=== PATIENT | female | born 1930 | race Caucasian/White ===

== ENCOUNTER 2017-05-26 11:21 | Inpatient (IN) ==
[2017-05-26] MEDS ORDERED: Albuterol 2.5 MG/3 ML NEBULIZER IH ONE (11:31)
[2017-05-26] MEDS ORDERED: Ipratropium/Albuterol Neb 3 ML IH ONE (11:31)
[2017-05-26] MEDS ORDERED: 0.9 % Sodium Chloride 1,000 ML IVC ONE ×2 (11:31→13:26)
[2017-05-26] MEDS ORDERED: methylPREDNISolone 125 MG/2 ML VIAL IVP ONE (11:31)
--- NOTE | 2017-05-26 11:34 | Emergency Department Note ---
Disposition Clinical Impression: Dehydration Pneumonia Qualifiers: Pneumonia type: due to unspecified organism Laterality: bilateral Lung location : unspecified part of lung Qualified Code(s): J18.9 - Pneumonia, unspecified organism Disposition: Admitted As Inpatient Condition: Good Time of Disposition: 12:59 URI/Sore Throat HPI - General Chief Complaint: ED Urogenital-Male Stated Complaint: Family thinks UTI vs dehydratrion Time Seen by Provider: 05/26/17 11:30 Source: patient, family Mode of arrival: EMS Limitations: physical limitation (Dementia), age Nursing Notes Reviewed: Yes Vital Signs Reviewed: Yes - History of Present Illness HPI Narrative: 87-year-old white female transported by EMS with cough, weakness, decreased by mouth intake. History obtained primarily from the family is that she has had a cough for about 3 days. She has been weak, and not eating as much as usual. No reported fever. No shortness of breath. No vomiting or diarrhea. No frequency or urgency. She has had previous history of UTI. Pt Subjective Complaint: cough Onset (ago): day(s) Duration: intermittent (3) Severity: moderate Improves with: nothing Worsens with: nothing If sputum, description: yellow Context: multiple patients with similar complaints Associated symptoms: Reports: other (Weakness and decreased by mouth intake) Treatments prior to arrival: none - Related Data Home Medications Medication Instructions Recorded Confirmed No Known Home Drugs 05/26/17 05/26/17 Allergies Allergy/AdvReac Type Severity Reaction Status Date / Time No Known Allergies Allergy Verified 05/26/17 11:32 All systems ED: reviewed and negative except as stated. Constitutional: Denies: fever, chills Eyes: Denies: eye discharge ENT ED: Denies: ear pain, throat pain Cardiovascular: Denies: chest pain Respiratory: Reports: cough, wheezes, sputum production. Denies: dyspnea Gastrointestinal: Reports: other (Decreased intake). Denies: abdominal pain, nausea, vomiting, diarrhea Genitourinary: Denies: urgency, dysuria, frequency Neurological: Reports: weakness URI PMH - Past Medical History Medical history: Reports: no medical history, dementia Psychiatric history: Reports: no psych history - Social History Smoking Status: Never smoker Alcohol use: Reports: none Drug use: Reports: unknown Physical Exam - General Limitations: age General appearance: alert, in no apparent distress - Head Head exam: atraumatic, normocephalic - Eye Eye exam: Present: PERRL, EOMI. Absent: scleral icterus, conjunctival injection - ENT ENT exam: normal oropharynx, mucous membranes moist, TM's normal bilaterally - Neck Neck exam: Present: normal inspection, full ROM, trachea midline. Absent: tenderness, lymphadenopathy - Respiratory Respiratory exam: Present: wheezes (Moderate diffuse bilateral expiratory), other (Decreased breath sounds in the bases with basilar rales). Absent: respiratory distress, accessory muscle use, prolonged expiratory phase - Cardiovascular Cardiovascular exam: Present: regular rate, normal rhythm, normal heart sounds - Abdominal Exam Abdominal exam: Present: soft, Non-Tender, normal bowel sounds. Absent: organomegaly, mass - Extremities Exam Extremities exam: Present: normal inspection, full ROM, normal capillary refill. Absent: pedal edema, calf tenderness - Back Exam Back exam: Present: normal inspection. Absent: CVA tenderness (R), CVA tenderness (L) - Neurological Exam Neurological exam: Present: alert, oriented X3. Absent: motor sensory deficit - Psychiatric Psychiatric exam: Present: normal affect, normal mood - Skin Skin exam: Present: warm, dry, intact, normal color. Absent: rash, cyanosis, diaphoresis Course Vital Signs Temperature 98.9 F 05/26/17 11:24 Pulse Rate 89 05/26/17 11:24 Respiratory Rate 18 05/26/17 11:24 Blood Pressure 90/67 05/26/17 11:24 O2 Sat by Pulse Oximetry 91 05/26/17 11:24 Temperature 98.5 F 05/26/17 14:11 Pulse Rate 99 05/26/17 14:11 Respiratory Rate 18 05/26/17 16:09 Blood Pressure 108/57 05/26/17 14:11 O2 Sat by Pulse Oximetry 92 05/26/17 16:09 Oxygen Delivery Oxygen Delivery Room Air Upper Respiratory Infection - MDM Narrative Medical decision making narrative: Differential includes but is not limited to pneumonia, bronchitis, influenza, urinary tract infection, dehydration, sepsis. She had bilateral patchy infiltrates consistent with pneumonia. She has a cough with bronchospasm. She is dehydrated. IV fluids been initiated. Blood cultures are being obtained prior to antibiotic therapy. She will be given Rocephin and azithromycin. She was given nebulizers and Solu-Medrol for her bronchospasm. Her lactic acid is not elevated. I discussed the case with the hospitalist, Dr. De La Fuente. He has accepted the patient for admission. - Lab Data Lab results reviewed: Yes I reviewed the patient's lab results. Result diagrams: 05/26/17 11:48 05/26/17 11:48 Lab Results 05/26/17 05/26/17 05/26/17 Range/Units 11:48 11:48 11:48 WBC 14.5 H (4.3-11.1) K/mcL RBC 4.30 (3.82-4.97) M/mcL Hgb 12.5 (11.5-15.4) g/dL Hct 38.0 (35.3-44.9) % MCV 88.4 (83.0-100.0) fL MCH 29.1 (28.0-33.3) pg MCHC 32.9 (31.6-35.5) g/dL RDW 12.7 (11.5-14.5) % Plt Count 264 (140-400) K/mcL MPV 10.4 (9.4-12.4) fL Immature Gran % Test Not Performed Seg Neutrophils % 78.0 % Band Neutrophils % 6.0 H (0-4) % Lymphocytes % 12.0 % Monocytes % 4.0 % Eosinophils % Test Not Performed Basophils % Test Not Performed Neutrophils # 12.2 H (1.6-8.9) K/mcL Lymphocytes # 1.7 (0.6-4.6) K/mcL Monocytes # 0.6 (0.0-1.3) K/mcL Eosinophils # Test Not Performed Basophils # Test Not Performed Hypersegmented Neuts Present A (Not Present) Reactive Lymphocytes Present A (Not Present) Toxic Vacuolation Present A (Not Present) Platelet Estimate Normal (Normal) Sodium 141 (136-145) mEq/L Potassium 3.9 (3.5-4.5) mEq/L Chloride 104 (98-109) mEq/L Carbon Dioxide 25 (19-29) mEq/L BUN 41 H (7-20) mg/dL Creatinine 1.70 H (0.57-1.11) mg/dL Est GFR ( Amer) 35 L (> 60) Est GFR (Non-Af Amer) 29 L (> 60) BUN/Creatinine Ratio 24 (6-26) Glucose 94 (70-99) mg/dL Calculated Osmolality 302 H (280-300) Lactic Acid 1.0 (0.5-2.2) mmol/L Calcium 9.5 (8.6-10.8) mg/dL Total Bilirubin 0.5 (0.2-1.2) mg/dL AST 35 H (5-34) Units/L ALT 14 (0-55) Units/L Alkaline Phosphatase 114 (38-126) Units/L Troponin I (0-0.03) ng/mL B-Natriuretic Peptide (0-100) pg/mL Serum Total Protein 7.1 (6.0-8.3) g/dL Albumin 2.4 L (3.5-5.0) g/dL Globulin 4.7 H (2.4-3.5) g/dL Albumin/Globulin Ratio 0.5 L (1.1-2.2) 05/26/17 05/26/17 Range/Units 11:48 11:48 WBC (4.3-11.1) K/mcL RBC (3.82-4.97) M/mcL Hgb (11.5-15.4) g/dL Hct (35.3-44.9) % MCV (83.0-100.0) fL MCH (28.0-33.3) pg MCHC (31.6-35.5) g/dL RDW (11.5-14.5) % Plt Count (140-400) K/mcL MPV (9.4-12.4) fL Immature Gran % Seg Neutrophils % % Band Neutrophils % (0-4) % Lymphocytes % % Monocytes % % Eosinophils % Basophils % Neutrophils # (1.6-8.9) K/mcL Lymphocytes # (0.6-4.6) K/mcL Monocytes # (0.0-1.3) K/mcL Eosinophils # Basophils # Hypersegmented Neuts (Not Present) Reactive Lymphocytes (Not Present) Toxic Vacuolation (Not Present) Platelet Estimate (Normal) Sodium (136-145) mEq/L Potassium (3.5-4.5) mEq/L Chloride (98-109) mEq/L Carbon Dioxide (19-29) mEq/L BUN (7-20) mg/dL Creatinine (0.57-1.11) mg/dL Est GFR ( Amer) (> 60) Est GFR (Non-Af Amer) (> 60) BUN/Creatinine Ratio (6-26) Glucose (70-99) mg/dL Calculated Osmolality (280-300) Lactic Acid (0.5-2.2) mmol/L Calcium (8.6-10.8) mg/dL Total Bilirubin (0.2-1.2) mg/dL AST (5-34) Units/L ALT (0-55) Units/L Alkaline Phosphatase (38-126) Units/L Troponin I 0.03 (0-0.03) ng/mL B-Natriuretic Peptide 80 (0-100) pg/mL Serum Total Protein (6.0-8.3) g/dL Albumin (3.5-5.0) g/dL Globulin (2.4-3.5) g/dL Albumin/Globulin Ratio (1.1-2.2) - Radiology Data Radiology results reviewed: Yes I reviewed the patient's radiology results. Impressions Chest X-Ray 05/26/17 11:31 IMPRESSION: Findings which may represent acute versus chronic bronchitis. 1. Mild bilateral nonspecific patchy opacities which may represent developing pneumonia. D/ / Jimenez Evans MD / Jimenez Evans MD Interpreting Provider: Jimenez Evans MD
[2017-05-26 12:00] LABS: Hemoglobin 12.5 g/dL (11.5-15.4); Mean Corpuscular HGB Conc 32.9 g/dL (31.6-35.5); Mean Corpuscular Hemoglobin 29.1 pg (28.0-33.3); Mean Corpuscular Volume 88.4 fL (83.0-100.0); Mean Platelet Volume 10.4 fL (9.4-12.4); Platelet Count 264 K/mcL (140-400); Red Cell Distribution Width 12.7 % (11.5-14.5)
[2017-05-26 12:18] LABS: Albumin 2.4 g/dL (3.5-5.0); Albumin/Globulin Ratio 0.5 (1.1-2.2); Bilirubin,Total 0.5 mg/dL (0.2-1.2); Calcium 9.5 mg/dL (8.6-10.8); Globulin 4.7 g/dL (2.4-3.5); Potassium 3.9 mEq/L (3.5-4.5); Total Protein 7.1 g/dL (6.0-8.3)
[2017-05-26 12:29] LABS: Lymphocytes # 1.7 K/mcL (0.6-4.6); Monocytes # 0.6 K/mcL (0.0-1.3); Neutrophils # 12.2 K/mcL (1.6-8.9)
[2017-05-26 12:30] LABS: Hypersegmented Neutrophils Present (Not Present); Platelet Estimate Normal (Normal); Reactive Lymphocytes Present (Not Present); Toxic Vacuolation Present (Not Present)
[2017-05-26] MEDS ORDERED: Azithromycin 500 MG in D5% in Water 250 ML IVPB ONE (12:35)
[2017-05-26] MEDS ORDERED: 0.9 % Sodium Chloride 1,000 ML IVC SCH (13:55)
[2017-05-26] MEDS ORDERED: Naloxone 0.4 MG/ML INJ IVP PRN (13:55)
[2017-05-26] MEDS ORDERED: Acetaminophen 325 MG TABLET PO PRN (13:55)
[2017-05-26] MEDS ORDERED: Ipratropium/Albuterol Neb 3 ML IH SCH (16:00)
--- NOTE | 2017-05-26 18:49 | Internal Med History&Physical ---
Date of Encounter: 05/26/17 Time of Encounter: 18:00 Assessment and Plan (1) Pneumonia Current visit: Yes Status: Acute She has been started empirically on Rocephin and Zithromax. Lactobacillus will be given. Further workup will be done as needed. Qualifiers: Pneumonia type: due to unspecified organism Laterality: bilateral Lung location: unspecified part of lung Qualified Code(s): J18.9 - Pneumonia, unspecified organism (2) Dementia Current visit: Yes Status: Acute MMSE will be done in a.m. Additional labs will be checked and further intervention done as needed. Qualifiers: Dementia type: unspecified type Dementia behavioral disturbance: without behavioral disturbance Qualified Code(s): F03.90 - Unspecified dementia without behavioral disturbance (3) Azotemia Current visit: Yes Status: Acute We will give IV fluids and recheck labs in a.m. Internal Medicine - H&P: HPI Chief complaint: Cough, weakness Admitted From: Home Plans for Post Hospital Care: Home History of present illness: Ms. Rose is a 87 year old female who came to emergency room with 3 day history of progressive weakness associated with nonproductive cough. She had 2 falls without injury since onset of symptoms. She denies vomiting diarrhea or significant pain. She was evaluated and felt to have pmeumonia on chest x-ray. She was admitted to [facility] floor for ongoing care needs. She is a limited historian with suspected underlying dementia. Her respiratory history is significant for being a lifelong nonsmoker and having no documented chronic lung disease. She does not use home oxygen. Past Med Surg Social Fam HX - Past Medical History Medical history: no medical history, dementia Psychiatric history: no psych history - Past Surgical History Surgical History: appendectomy - Social History Smoking Status: Never smoker Smokeless Tobacco Status: No Alcohol use: none Drug use: unknown Internal Medicine - H&P: Meds No Known Home Drugs 05/26/17 [History] 3 Allergy/AdvReac Type Severity Reaction Status Date / Time No Known Allergies Allergy Verified 05/26/17 11:32 All Systems PM: A 10-system review of systems was performed and is negative for pertinent findings except as documented above in the HPI. Review of systems: Gen.: She thinks her weight may have decreased approximately 10 pounds in the past year Cardiovascular: She denies VT hypertension heart failure angina DVT or pulmonary embolus Respiratory: As per history of present illness GI: She denies disorders of her liver gallbladder or exocrine pancreas : She is had urinary tract infections in the past. She denies other disorders of her kidneys or bladder Neurologic: She has had progressive memory impairment noted by family over the past few months. She denies large distribution strokes or seizures. Endocrine: She denies diabetes thyroid disease or hyperlipidemia Hematology/oncology: She denies blood disorders cancers or anemia Psychiatric: She denies anxiety depression or other mental health issues Musk skeletal: She has DJD but no known gout or other bone joint or muscle disorders. - Constitutional Vitals: Temp Pulse Resp BP Pulse Ox 98.5 F 99 18 108/57 92 05/26/17 14:11 05/26/17 14:11 05/26/17 16:09 05/26/17 14:11 05/26/17 16:09 Exam: Gen.: She is a well-developed well-nourished female resting comfortably in bed and appears in no acute distress HEENT: Head is atraumaticic and normocephalic. Eyes: EOMI. There is no scleral icterus. Mouth: Mucosa is moist. Neck: Supple and nontender. There is no thyromegaly or adenopathy noted. Heart: Regular without murmurs gallops or ectopics Lungs: No wheezes or crackles are heard. Abdomen: Soft and nontender. No masses or guarding noted. Extremities: There is no cyanosis edema, noted. Dorsalis pedis and posterior tibial pulses are trace palpable bilaterally. Her feet are warm to touch. Neurologic: Mental status: She is able to answer some questions but is overall a fair historian at best. She does not know her age, year of , place of , or do simple money calculation. Cranial nerves: Smile is symmetric. Forehead wrinkles bilaterally. Tongue protrudes midline. EOMI. Motor: There is no pronator drift. She has cogwheeling and rigidity on passive range of motion of her wrists and elbows. Cerebellar: Finger to nose shows dysmetria bilaterally. Skin: Warm and dry Internal Med - H&P Results - Labs CBC & Chem 7: 05/26/17 11:48 05/26/17 11:48
[2017-05-26] MEDS ORDERED: methylPREDNISolone 125 MG/2 ML VIAL IVP SCH (20:00)
[2017-05-26] MEDS: 0.45 % Sodium Chloride w/KCl 20 MEQ/1,000 ML MLS IVC SCH (20:20)
[2017-05-27 04:59] LABS: Hematocrit 34.5 % (35.3-44.9); Hemoglobin 11.2 g/dL (11.5-15.4); Lymphocytes # 0.8 K/mcL (0.6-4.6); Mean Corpuscular HGB Conc 32.5 g/dL (31.6-35.5); Mean Corpuscular Hemoglobin 28.6 pg (28.0-33.3); Mean Corpuscular Volume 88.2 fL (83.0-100.0); Mean Platelet Volume 10.6 fL (9.4-12.4); Platelet Count 256 K/mcL (140-400); Red Blood Count 3.91 M/mcL (3.82-4.97); Red Cell Distribution Width 12.8 % (11.5-14.5)
[2017-05-27 05:18] LABS: Alanine Aminotransferase 14 Units/L (0-55); Albumin/Globulin Ratio 0.5 (1.1-2.2); Alkaline Phosphatase 100 Units/L (38-126); Aspartate Amino Transferase 26 Units/L (5-34); BUN/Creatinine Ratio 36 (6-26); Bilirubin,Total 0.3 mg/dL (0.2-1.2); Blood Urea Nitrogen 34 mg/dL (7-20); Calcium 8.8 mg/dL (8.6-10.8); Carbon Dioxide 22 mEq/L (19-29); Chloride 108 mEq/L (98-109); Globulin 4.4 g/dL (2.4-3.5); Glucose 127 mg/dL (70-99); Osmolality,Calculated 297 (280-300); Potassium 4.3 mEq/L (3.5-4.5); Sodium 139 mEq/L (136-145); Total Protein 6.4 g/dL (6.0-8.3); eGFR For African Americans > 60 (> 60); eGFR For Non-African Americans 56 (> 60)
[2017-05-27] MEDS: 0.45 % Sodium Chloride w/KCl 20 MEQ/1,000 ML MLS IVC SCH (06:02)
[2017-05-27] MEDS: *HR* Enoxaparin 40 MG/0.4 ML SYRINGE SQ SCH (06:04)
[2017-05-27 06:05] LABS: Dohle Bodies Present (Not Present); Monocytes # 0.1 K/mcL (0.0-1.3); Neutrophils # 12.4 K/mcL (1.6-8.9)
[2017-05-27 06:06] LABS: Anisocytosis 1+ (Not Present); Platelet Estimate Normal (Normal)
[2017-05-27 06:07] LABS: Polychromasia 1+ (Not Present); Toxic Granulation Present (Not Present)
--- NOTE | 2017-05-27 10:51 | Internal Med Progress Note ---
Date of Encounter: 05/27/17 Time of Encounter: 10:15 - Assessment and plan (1) Pneumonia Current Visit: Yes Status: Acute Assessment and plan: May 27. Continue Rocephin, Zithromax, and lactobacillus. Anticipate discharge home tomorrow if stable. Qualifiers: Pneumonia type: due to unspecified organism Laterality: bilateral Lung location: unspecified part of lung Qualified Code(s): J18.9 - Pneumonia, unspecified organism (2) Dementia Current Visit: Yes Status: Acute Assessment and plan: May 27. MMSE score of 13/30. B12 level and T4 level unremarkable. Qualifiers: Dementia type: unspecified type Dementia behavioral disturbance: without behavioral disturbance Qualified Code(s): F03.90 - Unspecified dementia without behavioral disturbance (3) Azotemia Current Visit: Yes Status: Acute Assessment and plan: May 27. Significantly improved. Will decrease IV fluids and recheck labs in a.m. - Subjective Interval history: May 27. She has no new complaints and feels better. - Constitutional Vitals: Temp Pulse Resp BP Pulse Ox 98.4 F 71 24 134/61 92 05/27/17 10:20 05/27/17 10:20 05/27/17 10:20 05/27/17 10:20 05/27/17 10:20 Exam: She is resting comfortably in bed and appears in no acute distress. Her affect is bright and cheerful. I reviewed her medications and lab results. Internal Medicine: Result - Labs CBC & Chem 7: 05/27/17 04:30 05/27/17 04:30 Labs: Short CBC 05/27/17 Range/Units 04:30 WBC 13.3 H (4.3-11.1) K/mcL Hgb 11.2 L (11.5-15.4) g/dL Hct 34.5 L (35.3-44.9) % Plt Count 256 (140-400) K/mcL Neutrophils # 12.4 H (1.6-8.9) K/mcL BMP 05/27/17 04:30 Sodium 139 Potassium 4.3 Chloride 108 Carbon Dioxide 22 BUN 34 H Creatinine 0.94 Glucose 127 H Calcium 8.8 Liver Function 05/27/17 Range/Units 04:30 Total Bilirubin 0.3 (0.2-1.2) mg/dL AST 26 (5-34) Units/L ALT 14 (0-55) Units/L Alkaline Phosphatase 100 (38-126) Units/L Albumin 2.0 L (3.5-5.0) g/dL Consult Discharge Plan - Plan Referrals: NONE,PCP [Primary Care Provider] - 1 week Yelena Preston [Family Provider] - 1 week
[2017-05-27] MEDS ORDERED: 0.45 % Sodium Chloride w/KCl 20 MEQ/1,000 ML MLS IVC SCH (11:01)
[2017-05-27] MEDS ORDERED: Azithromycin 500 MG in D5% in Water 250 ML IVPB SCH (12:00)
[2017-05-27] MEDS ORDERED: ALPRAZolam 0.5 MG TABLET PO PRN (16:17)
[2017-05-27] MEDS: Lactobacillus 1 EACH CAP.SPRINK PO SCH (20:08)
[2017-05-27 23:31] LABS: Bilirubin,Urine Negative (Negative); Blood,Urine Trace-intact (Negative); Clarity,Urine Slightly Cloudy (Clear); Color,Urine Yellow (Yellow); Glucose,Urine (UA) Normal (Normal); Ketones,Urine Negative (Negative); Leukocyte Esterase,Urine Large (Negative); Nitrite,Urine Negative (Negative); PH,Urine 5.5 pH Units (5.0-8.0); Protein,Urine 30 mg/dL (Neg-Trace); Urobilinogen,Urine Normal (Normal)
[2017-05-27 23:40] LABS: Squamous Epithelial Cell,Urine Many per lpf (None-Few)
[2017-05-27 23:42] LABS: Uric Acid Crystals,Urine Present
[2017-05-28] MEDS: *HR* Enoxaparin 40 MG/0.4 ML SYRINGE SQ SCH (05:34)
[2017-05-28 06:20] LABS: Basophils # 0.1 K/mcL (0.0-0.2); Basophils % 0.3 %; Immature Granulocytes % 2.7 % (0-4); Lymphocytes # 2.3 K/mcL (0.6-4.6); Lymphocytes % 12.7 %; Mean Corpuscular HGB Conc 33.3 g/dL (31.6-35.5); Mean Corpuscular Hemoglobin 28.9 pg (28.0-33.3); Mean Corpuscular Volume 86.8 fL (83.0-100.0); Mean Platelet Volume 10.1 fL (9.4-12.4); Monocytes # 0.9 K/mcL (0.0-1.3); Monocytes % 5.3 %; Platelet Count 283 K/mcL (140-400); Red Cell Distribution Width 12.9 % (11.5-14.5)
[2017-05-28 06:35] LABS: BUN/Creatinine Ratio 44 (6-26); Blood Urea Nitrogen 34 mg/dL (7-20); Calcium 9.1 mg/dL (8.6-10.8); Carbon Dioxide 23 mEq/L (19-29); Chloride 110 mEq/L (98-109); Glucose 104 mg/dL (70-99); Osmolality,Calculated 302 (280-300); Potassium 4.1 mEq/L (3.5-4.5); Sodium 142 mEq/L (136-145); eGFR For African Americans > 60 (> 60); eGFR For Non-African Americans > 60 (> 60)
[2017-05-28 06:57] LABS: Platelet Estimate Normal (Normal)
[2017-05-28] MEDS: Lactobacillus 1 EACH CAP.SPRINK PO SCH (08:37)
[2017-05-28] MEDS ORDERED: Azithromycin 250 MG TABLET PO SCH (09:00)
[2017-05-28] MEDS ORDERED: Cefuroxime PO 250 MG TABLET PO SCH (09:00)
[2017-05-28 10:25] VITALS: BP 129/68
--- NOTE | 2017-05-28 11:06 | Discharge Summary ---
Date of Encounter: 05/28/17 Time of Encounter: 11:00 - Discharge Diagnosis (1) Pneumonia Priority: Primary Status: Acute Qualifiers: Pneumonia type: due to unspecified organism Laterality: bilateral Lung location: unspecified part of lung Qualified Code(s): J18.9 - Pneumonia, unspecified organism (2) Dementia Priority: Secondary Status: Chronic Qualifiers: Dementia type: unspecified type Dementia behavioral disturbance: without behavioral disturbance Qualified Code(s): F03.90 - Unspecified dementia without behavioral disturbance (3) Azotemia Priority: Secondary Status: Acute - Discharge Medications Prescriptions: Cefuroxime PO [Ceftin] 500 mg PO Q12HR #8 tablet Azithromycin [Zithromax] 250 mg PO DAILY #4 tablet Lactobacillus [Culturelle] 1 each PO BID #8 [email or web address] Home Medications: Azithromycin [Zithromax] 250 mg PO DAILY #4 tablet 05/28/17 [Rx] Cefuroxime PO [Ceftin] 500 mg PO Q12HR #8 tablet 05/28/17 [Rx] Lactobacillus [Culturelle] 1 each PO BID #8 cap.[email or web address] 05/28/17 [Rx] Allergies/Adverse Reactions: 3 Allergy/AdvReac Type Severity Reaction Status Date / Time No Known Allergies Allergy Verified 05/26/17 11:32 Date of admission: 05/26/17 19:20 Primary care physician: PCP NONE - Patient Status Disposition: Home, Self-Care Condition: Good Overall status at discharge: patient is progressing back to baseline - Discharge Instructions Follow Up With: NONE,PCP [Primary Care Provider] - 1 week Yelena Preston [Family Provider] - 1 week - Diet and Activity Activity: resume usual activities as tolerated Diet: advance to your usual diet Hospital course: Ms. Rose is a 87 year old female who came to emergency room with 3 day history of progressive weakness associated with nonproductive cough. She had 2 falls without injury since onset of symptoms. She denies vomiting diarrhea or significant pain. She was evaluated and felt to have pmeumonia on chest x-ray. She was admitted to [facility] floor for ongoing care needs. Initial orders were written by the emergency room physician. I saw her on May 26 and performed a history and physical. She was started empirically on IV Rocephin and Zithromax for pneumonia. Lactobacillus was also given. She had good clinical improvement with less dyspnea. She remained afebrile during her hospital stay. WBC bart to 17.7 on the day of discharge with 79% segs. She was asymptomatic however and will be discharged home to continue antibiotics and probiotics for 4 additional days after discharge. She was given IV fluids and creatinine decreased from 1.70 on admission to 0.77 the day of discharge with estimated GFR greater than 60. Dementia testing showed MMSE score of 13/30. B12 level was 1152 and TSH minimally suppressed at 0.241. On May 28 she was stable for discharge home. She will follow with her PCP within one week. - Time Spent with Patient Total time spent providing and/or coordinating discharge services: - Constitutional Vitals: Temp Pulse Resp BP Pulse Ox 98.4 F 86 18 129/68 94 05/28/17 10:22 05/28/17 10:22 05/28/17 10:22 05/28/17 10:22 05/28/17 10:22
== END 2017-05-28 11:55 | disposition home or self-care (01) | DRG 195 ==
LOC: INPPIK 11:21 → EMEROOPIK 11:21 → INPPIK 12:50
PROVIDERS: ADMIT Internal Medicine; ATTEND Internal Medicine

== ENCOUNTER 2018-05-05 09:53 | Inpatient (IN) ==
--- NOTE | 2018-05-05 10:10 | Emergency Department Note ---
Disposition Clinical Impression: History of fall, Weakness, Acute renal insufficiency Dementia Qualifiers: Dementia type: unspecified type Dementia behavioral disturbance: without behavioral disturbance Qualified Code(s): F03.90 - Unspecified dementia without behavioral disturbance Contusion of right back wall of thorax Qualifiers: Encounter type: initial encounter Qualified Code(s): S20.221A - Contusion of right back wall of thorax, initial encounter UTI (urinary tract infection) Qualifiers: Urinary tract infection type: acute cystitis Hematuria presence: without hematuria Qualified Code(s): N30.00 - Acute cystitis without hematuria Disposition: Admitted As Inpatient Condition: Good Referrals: Gilbert Camilo DIRECTOR OF [employer]IATION [Primary Care Provider] - () Forms: ED Satisfaction Letter Fall HPI - General Chief Complaint: ED General Medical Stated Complaint: FELL Time Seen by Provider: 05/05/18 10:00 Source: patient, family, EMS Mode of arrival: EMS Limitations: altered mental status (Dementia), age Nursing Notes Reviewed: Yes Vital Signs Reviewed: Yes - History of Present Illness HPI Narrative: Patient presents after history of a fall last night. Patient's family state they heard some noise and before they could get to her she stood from her bed and fell backwards impacting her upper back on the bed board. She sustained a contusion to the lower mid thoracic region and in the right subscapular region. She did not hit her head or sustain any other extremity injury. She was able to get up subsequently and has rested through the night. This morning she is ambulatory but with more of a shuffling gait. She has been brought in by EMS for evaluation. On presentation when asked if she has any pain or problems she states "none". She does not recall falling last night. She states that she has been able to get up and walk "a little" this morning. She denies any headache or scalp pain. She denies neck pain or midline back pain. She states she does not hurt anywhere. She denies visual changes, nausea or vomiting. She denies any chest pain, shortness of breath or cough. She denies abdominal pain, nausea, diarrhea. She denies urinary troubles. She denies any injury or pain to her upper or lower extremities. She denies fevers or chills. She believes that she is been eating and drinking okay. She is able to articulate that she lives with family. She is been transported in by EMS. They advised that she really did not want to come but her son has power of consumer attorney and the patient does have significant dementia. They established an IV in the right AC and documented a blood pressure of 136/66, heart rate of 88, respiratory rate of 15 and a saturation of 94% on room air. I advised that they are transport was uneventful. In speaking to the patient's family they state that she was diagnosed as a possible UTI this past Friday and started on Bactrim. She has some bladder prolapse and has recurrent UTIs. They state a urinalysis was not performed. Over the course of the week she has been more weak and wobbly. She has had 2-3 falls in the week without significant injury. In falling last night and hitting her back she has developed a contusion and abrasion in the mid low thoracic midline and a contusion in the right subscapular region for which they wanted her checked. They indicate that she is having little decrease in solid and liquid intake over the last week. They state that, as a baseline, she has about 3 minutes of short-term memory. Patient is not on anticoagulants. Pt Subjective Complaint: fall Onset (ago): day(s) (1) Fall From: out of bed Fall Witnessed: yes Place Fall Occurred: home Loss of Consciousness: none Prolonged Down Time?: no Symptoms Prior to Fall: none Context: tripped/slipped, history of frequent falls Location of injury: back Severity: none Associated symptoms (after fall): Reports: denies - Related Data Home Medications Medication Instructions Recorded Confirmed Sulfamethoxazole/Trimeth DS 1 each PO BID 05/05/18 05/05/18 [Bactrim DS] Allergies Allergy/AdvReac Type Severity Reaction Status Date / Time No Known Allergies Allergy Verified 05/26/17 11:32 All systems ED: reviewed and negative except as stated. Fall PMH - Past Medical History Medical history: Reports: dementia Surgical history: Reports: appendectomy Psychiatric history: Reports: no psych history - Social History Smoking Status: Never smoker Alcohol use: Reports: none Drug use: Reports: unknown Physical Exam - General Limitations: altered mental status (Dementia with severe short-term memory loss), age General appearance: alert, in no apparent distress - Head Head exam: atraumatic, normocephalic, normal inspection - Eye Eye exam: Present: normal appearance, PERRL, EOMI - ENT ENT exam: normal exam, normal oropharynx, mucous membranes moist - Neck Neck exam: Present: normal inspection, full ROM, trachea midline. Absent: tenderness - Chest Chest inspection: Present: symmetric chest wall rise, tenderness (Slight in the right subscapular region where she has a contusion. No tenderness over the thoracic spine where she also has a contusion over the lower mid thoracic spine. Patient has no crepitance or palpable step-off.) - Respiratory Respiratory exam: Present: normal lung sounds bilaterally. Absent: respiratory distress, wheezes, prolonged expiratory phase - Cardiovascular Cardiovascular exam: Present: regular rate, normal rhythm, normal heart sounds. Absent: tachycardia - Abdominal Exam Abdominal exam: Present: soft, Non-Tender, normal bowel sounds. Absent: tenderness, distention, guarding, rebound, rigidity - Extremities Exam Extremities exam: Present: normal inspection, full ROM, normal capillary refill. Absent: tenderness, pedal edema - Expanded Upper Extremity Exam Shoulder exam: Present: normal inspection, full ROM. Absent: tenderness, swelling, tenderness over AC joint Arm exam: Present: normal inspection, full ROM Elbow exam: Present: normal inspection, full ROM. Absent: tenderness, swelling Forearm/Wrist exam: Present: normal inspection, full ROM. 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 Absent: tenderness, swelling Vascular exam: Normal: capillary refill, radial pulse - Expanded Lower Extremity Exam Hip/Pelvis exam: Present: normal inspection, pelvis stable, other (Patient has some increased tone and stiffness to flexion of her hips and knees. He does not have pain with motion of the lower extremities.). Absent: tenderness, swelling Upper leg exam: Present: normal inspection Knee exam: Present: normal inspection, other. Absent: tenderness, swelling Lower leg exam: Present: normal inspection Ankle exam: Present: normal inspection. Absent: tenderness, swelling Foot/toe exam: Present: normal inspection. Absent: tenderness, swelling Neurovascular/Tendon exam: Present: normal capillary refill. Absent: motor deficit, sensory deficit, tendon deficit Gait: not tested/not observed - Back Exam Back exam: Present: full ROM, other (Curvilinear contusion across the lower thoracic spine that is nontender.). Absent: tenderness, vertebral tenderness - Neurological Exam Neurological exam: Present: alert, CN II-XII intact. Absent: oriented X3 - Psychiatric Psychiatric exam: Present: normal affect, normal mood. Absent: agitated, anxious - Skin Skin exam: Present: warm, dry, intact, normal color. Absent: diaphoresis, pall or Course Course Narrative: Care is discussed with the family immediately upon interviewing and examining the patient. A straight catheter urinalysis will be performed as well as a CBC and basic chemistries. Imaging has been ordered for the right ribs with PA chest. If this evaluation is unremarkable the family feels quite comfortable in taking her home to continue with her routine treatment. 1100: Given the patient's persistent UTI, weakness, recurrent falls and acute renal insufficiency, I believe a course of IV fluids and IV antibiotics would be most prudent. I discussed this with the patient and family. A page has been placed to Dr. De La Fuente for the patient's inpatient treatment. Vital Signs Temperature 98.6 F 05/05/18 09:57 Pulse Rate 91 05/05/18 09:57 Respiratory Rate 18 05/05/18 09:57 Blood Pressure 108/68 05/05/18 09:57 O2 Sat by Pulse Oximetry 94 05/05/18 09:57 Temperature 98.6 F 05/05/18 09:57 Pulse Rate 91 05/05/18 10:44 Respiratory Rate 16 05/05/18 10:44 Blood Pressure 133/89 05/05/18 10:44 O2 Sat by Pulse Oximetry 95 05/05/18 10:44 Oxygen Delivery Oxygen Delivery Room Air Fall - Differential Diagnosis Likely: syncope, traumatic injury - Medical Records Medical records reviewed: Yes I reviewed the patient's medical records. - Lab Data Lab results reviewed: Yes I reviewed the patient's lab results. Result diagrams: 05/05/18 10:25 05/05/18 10:25 Lab Results 05/05/18 05/05/18 05/05/18 Range/Units 10:20 10:25 10:25 WBC 10.4 (4.3-11.1) K/mcL RBC 4.85 (3.82-4.97) M/mcL Hgb 13.9 (11.5-15.4) g/dL Hct 42.5 (35.3-44.9) % MCV 87.6 (83.0-100.0) fL MCH 28.7 (28.0-33.3) pg MCHC 32.7 (31.6-35.5) g/dL RDW 13.3 (11.5-14.5) % Plt Count 198 (140-400) K/mcL MPV 9.6 (9.4-12.4) fL Immature Gran % 1.2 (0-4) % Seg Neutrophils % 83.8 % Lymphocytes % 8.1 % Monocytes % 6.4 % Eosinophils % 0.2 % Basophils % 0.3 % Neutrophils # 8.7 (1.6-8.9) K/mcL Lymphocytes # 0.8 (0.6-4.6) K/mcL Monocytes # 0.7 (0.0-1.3) K/mcL Eosinophils # 0.0 (0.0-0.6) K/mcL Basophils # 0.0 (0.0-0.2) K/mcL Sodium 131 L (136-145) mEq/L Potassium 4.7 (3.5-5.1) mEq/L Chloride 98 (98-107) mEq/L Carbon Dioxide 24 (23-29) mEq/L BUN 48 H (8-23) mg/dL Creatinine 1.75 H (0.60-1.20) mg/dL Est GFR ( Amer) 33 L (> 60) Est GFR (Non-Af Amer) 27 L (> 60) BUN/Creatinine Ratio 27 H (6-26) Glucose 110 H (70-105) mg/dL Calculated Osmolality 285 (280-300) Calcium 9.2 (8.6-10.3) mg/dL Urine Color Yellow (Yellow) Urine Clarity Cloudy A (Clear) Urine pH 6.0 (5.0-8.0) pH Units Ur Specific [place] 1.025 (1.010-1.025) Urine Protein 30 H (Neg-Trace) mg/dL Urine Glucose (UA) Normal (Normal) mg/dL Urine Ketones Negative (Negative) mg/dL Urine Blood Small H (Negative) Urine Nitrite Negative (Negative) Urine Bilirubin Negative (Negative) Urine Urobilinogen Normal (Normal) mg/dL Ur Leukocyte Esterase Large H (Negative) Urine Microscopic RBC 30-50 H (0-3) per hpf Urine Microscopic WBC TNTC H (0-3) per hpf Ur Squamous Epith Cells Few (None-Few) per lpf Urine Bacteria Moderate H (None-Few) per hpf Ur Culture Indicated? YES A (NO) - Radiology Data Radiology results reviewed: Yes I reviewed the patient's radiology results. 3 view x-ray is obtained of the right ribs with PA chest. This does not demonstrate evidence for acute rib fracture, pneumothorax or pulmonary effusion. There is no sign for pulmonary contusion. Patient does have a stable nodule in the right upper lobe. Patient does have osteopenia. No other acute abnormality is seen. This is on my interpretation. Impressions Ribs w/Chest X-Ray 05/05/18 10:04 IMPRESSION: No acute abnormality seen in the chest or right ribs D/ / John Paul Thompson MD / John Paul Thompson MD Interpreting Provider: John Paul Thompson MD
[2018-05-05 10:25] LABS: Bilirubin,Urine Negative (Negative); Blood,Urine Small (Negative); Clarity,Urine Cloudy (Clear); Color,Urine Yellow (Yellow); Glucose,Urine (UA) Normal (Normal); Ketones,Urine Negative (Negative); Leukocyte Esterase,Urine Large (Negative); Nitrite,Urine Negative (Negative); Protein,Urine 30 mg/dL (Neg-Trace); Specific Gravity,Urine 1.025 (1.010-1.025); Urobilinogen,Urine Normal (Normal)
[2018-05-05 10:31] LABS: Basophils % 0.3 %; Eosinophils % 0.2 %; Hematocrit 42.5 % (35.3-44.9); Hemoglobin 13.9 g/dL (11.5-15.4); Immature Granulocytes % 1.2 % (0-4); Lymphocytes # 0.8 K/mcL (0.6-4.6); Lymphocytes % 8.1 %; Mean Corpuscular HGB Conc 32.7 g/dL (31.6-35.5); Mean Corpuscular Hemoglobin 28.7 pg (28.0-33.3); Mean Corpuscular Volume 87.6 fL (83.0-100.0); Mean Platelet Volume 9.6 fL (9.4-12.4); Monocytes # 0.7 K/mcL (0.0-1.3); Monocytes % 6.4 %; Neutrophils # 8.7 K/mcL (1.6-8.9); Platelet Count 198 K/mcL (140-400); Red Blood Count 4.85 M/mcL (3.82-4.97); Red Cell Distribution Width 13.3 % (11.5-14.5); Segmented Neutrophils % 83.8 %
[2018-05-05 10:53] LABS: Calcium 9.2 mg/dL (8.6-10.3); Potassium 4.7 mEq/L (3.5-5.1)
[2018-05-05 10:54] LABS: RBC,Urine 30-50 per hpf (0-3); Squamous Epithelial Cell,Urine Few per lpf (None-Few); WBC,Urine TNTC per hpf (0-3)
[2018-05-05 10:55] LABS: Bacteria,Urine Moderate per hpf (None-Few)
[2018-05-05] MEDS ORDERED: cefTRIAXone 2,000 MG in 0.9 % Sodium Chloride Mini Bag 100 ML IVPB ONE (11:00)
[2018-05-05] MEDS ORDERED: 0.9 % Sodium Chloride 1,000 ML IVC ONE (11:00)
[2018-05-05] MEDS ORDERED: 0.9 % Sodium Chloride 1,000 ML IVC SCH (11:00)
[2018-05-05] MEDS ORDERED: Naloxone 0.4 MG/ML INJ IVP PRN (12:37)
--- NOTE | 2018-05-05 16:17 | Internal Med History&Physical ---
Date of Encounter: 05/05/18 Time of Encounter: 15:20 Assessment and Plan (1) Acute renal insufficiency Current visit: Yes Status: Acute Likely secondary to dehydration. IV fluids have been ordered. Labs will be checked in a.m. (2) UTI (urinary tract infection) Current visit: Yes Status: Acute She has been started empirically on Rocephin. Lactobacillus will be added. Qualifiers: Urinary tract infection type: acute cystitis Hematuria presence: without hematuria Qualified Code(s): N30.00 - Acute cystitis without hematuria (3) Dementia Current visit: Yes Status: Chronic MMSE May 2017 showed scored 13/30. B12 and TSH unremarkable. Qualifiers: Dementia type: unspecified type Dementia behavioral disturbance: without behavioral disturbance Qualified Code(s): F03.90 - Unspecified dementia without behavioral disturbance (4) Contusion of right back wall of thorax Current visit: Yes Status: Acute Will use analgesics as needed. Qualifiers: Encounter type: initial encounter Qualified Code(s): S20.221A - Contusion of right back wall of thorax, initial encounter (5) Weakness Current visit: Yes Status: Acute She will have PT and OT evaluations. Internal Medicine - H&P: HPI Chief complaint: Fall with weakness, UTI Admitted From: Emergency Dept Plans for Post Hospital Care: Home History of present illness: Ms. Rose is a 88 year old female who came to emergency room after family reports she had a fall last evening. They state she has been getting progressively weaker over the past few days with decreased oral intake. She was evaluated in emergency room and found to have acute renal insufficiency likely due to dehydration. She had evidence of UTI. She was admitted to [facility] floor for ongoing care needs. She has dementia and cannot give additional history. Her [id number] who supplies the history states she has had a urinary tract infection earlier this year. She does not have documented other kidney or bladder disorders. She was hospitalized approximately 11 months ago at [facility] with pneumonia and had acute renal insufficiency at that time which resolved by time of discharge. The patient denies pain or dyspnea at present time. Past Med Surg Social Fam HX - Past Medical History Medical history: dementia Psychiatric history: no psych history - Past Surgical History Surgical History: appendectomy - Social History Smoking Status: Never smoker Smokeless Tobacco Status: No Alcohol use: none Drug use: unknown Internal Medicine - H&P: Meds Sulfamethoxazole/Trimeth DS [Bactrim DS] 1 each PO BID 05/05/18 [History] Allergy/AdvReac Type Severity Reaction Status Date / Time No Known Allergies Allergy Verified 05/26/17 11:32 All Systems PM: A 10-system review of systems was performed and is negative for pertinent findings except as documented above in the HPI. Review of systems: Review of systems from her May 2017 [facility] hospitalization were reviewed and revised as below. Gen.: Her weight has increased from 59.194 kg on 05/28/2017 to 63.503 kg on admission today Cardiovascular: She denies CO hypertension heart failure angina DVT or pulmonary embolus Respiratory: She is a lifelong nonsmoker and has no documented chronic lung disease. GI: She denies disorders of her liver gallbladder or exocrine pancreas : As per history of present illness Neurologic: She has dementia but no known large distribution strokes or seizures. Endocrine: She denies diabetes thyroid disease or hyperlipidemia Hematology/oncology: She denies blood disorders cancers or anemia Psychiatric: She denies anxiety depression or other mental health issues Musk skeletal: She has DJD but no known gout or other bone joint or muscle disorders. - Constitutional Vitals: Temp Pulse Resp BP Pulse Ox 98.6 F 83 18 110/68 95 05/05/18 09:57 05/05/18 11:45 05/05/18 11:45 05/05/18 11:45 05/05/18 13:31 Exam: Gen.: She is a well-developed well-nourished female lying in bed who appears in no acute distress HEENT: Head is atraumatic and normocephalic. Eyes: EOMI. There is no scleral icterus. Mouth: Mucosa is moist. Neck: Supple and nontender. There is no thyromegaly or adenopathy noted. Heart: Regular without murmurs gallops or ectopics Lungs: No wheezes or crackles are heard. Abdomen: Soft and nontender. No masses or guarding are noted. Extremities: There is no cyanosis edema or clubbing noted. Dorsalis pedis and posttibial pulses are trace to 1+ palpable bilaterally. She has DJD changes or hands. Neurologic: Mental status: She is able to answer a few questions but is a poor historian. Cranial nerves: Smile is symmetric. Forehead wrinkles bilaterally. Tongue protrudes midline. EOMI. Motor: There is no pronator drift. Cerebellar: Finger to nose is intact bilaterally. Skin: Warm and dry Internal Med - H&P Results - Labs CBC & Chem 7: 05/05/18 10:25 05/05/18 10:25 Labs: Short CBC 05/05/18 Range/Units 10:25 WBC 10.4 (4.3-11.1) K/mcL Hgb 13.9 (11.5-15.4) g/dL Hct 42.5 (35.3-44.9) % Plt Count 198 (140-400) K/mcL Neutrophils # 8.7 (1.6-8.9) K/mcL BMP 05/05/18 10:25 Sodium 131 L Potassium 4.7 Chloride 98 Carbon Dioxide 24 BUN 48 H Creatinine 1.75 H Glucose 110 H Calcium 9.2 Urine 05/05/18 Range/Units 10:20 Urine Color Yellow (Yellow) Urine Clarity Cloudy A (Clear) Urine pH 6.0 (5.0-8.0) pH Units Ur Specific [place] 1.025 (1.010-1.025) Urine Protein 30 H (Neg-Trace) mg/dL Urine Glucose (UA) Normal (Normal) mg/dL - Impressions ITS Impressions Ribs w/Chest X-Ray 05/05/18 10:04 IMPRESSION: No acute abnormality seen in the chest or right ribs D/ / John Paul Thompson MD / John Paul Thompson MD Interpreting Provider: John Paul Thompson MD
[2018-05-05] MEDS: 0.9 % Sodium Chloride 1,000 ML IVC SCH (18:47)
[2018-05-05] MEDS: Lactobacillus 1 EACH CAP.SPRINK PO SCH (20:47)
[2018-05-06] MEDS: 0.9 % Sodium Chloride 1,000 ML IVC SCH ×5 (02:32→23:38)
[2018-05-06 05:22] LABS: Basophils % 0.2 %; Eosinophils % 0.3 %; Hematocrit 39.1 % (35.3-44.9); Hemoglobin 12.6 g/dL (11.5-15.4); Immature Granulocytes % 1.1 % (0-4); Lymphocytes % 11.9 %; Mean Corpuscular HGB Conc 32.2 g/dL (31.6-35.5); Mean Corpuscular Hemoglobin 28.5 pg (28.0-33.3); Mean Corpuscular Volume 88.5 fL (83.0-100.0); Monocytes # 0.6 K/mcL (0.0-1.3); Monocytes % 6.4 %; Platelet Count 169 K/mcL (140-400); Red Blood Count 4.42 M/mcL (3.82-4.97); Red Cell Distribution Width 13.4 % (11.5-14.5); Segmented Neutrophils % 80.1 %
[2018-05-06 06:27] LABS: BUN/Creatinine Ratio 28 (6-26); Blood Urea Nitrogen 27 mg/dL (8-23); Calcium 8.4 mg/dL (8.6-10.3); Carbon Dioxide 20 mEq/L (23-29); Chloride 105 mEq/L (98-107); Glucose 83 mg/dL (70-105); Osmolality,Calculated 284 (280-300); Sodium 135 mEq/L (136-145); eGFR For Non-African Americans 54 (> 60)
[2018-05-06] MEDS: Lactobacillus 1 EACH CAP.SPRINK PO SCH ×2 (07:49→22:07)
[2018-05-06] MEDS: cefTRIAXone 2,000 MG in 0.9 % Sodium Chloride Mini Bag 100 ML IVPB SCH (07:50)
--- NOTE | 2018-05-06 11:23 | Internal Med Progress Note ---
Date of Encounter: 05/06/18 Time of Encounter: 11:15 - Assessment and plan (1) Acute renal insufficiency Current Visit: Yes Status: Acute Assessment and plan: May 06. Significantly improved with BUN 27 and creatinine 0.97. Continue IV fluids and recheck labs in a.m. (2) UTI (urinary tract infection) Current Visit: Yes Status: Acute Assessment and plan: May 06. Continue empiric Rocephin. Urine culture report pending. Qualifiers: Urinary tract infection type: acute cystitis Hematuria presence: without hematuria Qualified Code(s): N30.00 - Acute cystitis without hematuria (3) Dementia Current Visit: Yes Status: Chronic Assessment and plan: May 06. MMSE May 2017 showed score 13/30. B12 and TSH unremarkable. Observe Qualifiers: Dementia type: unspecified type Dementia behavioral disturbance: without behavioral disturbance Qualified Code(s): F03.90 - Unspecified dementia without behavioral disturbance (4) Contusion of right back wall of thorax Current Visit: Yes Status: Acute Assessment and plan: May 06. Continue analgesics as needed. Qualifiers: Encounter type: initial encounter Qualified Code(s): S20.221A - Contusion of right back wall of thorax, initial encounter (5) Weakness Current Visit: Yes Status: Acute Assessment and plan: May 06. Continue PT and OT intervention. - Subjective Interval history: May 06. No new problems have arisen. Family reports she is more confused today and did not sleep well last night. They report she is slightly constipated. - Constitutional Vitals: Temp Pulse Resp BP Pulse Ox 98.4 F 63 19 103/68 97 05/06/18 10:00 05/06/18 10:00 05/06/18 10:00 05/06/18 10:05/06/18 10:00 Exam: She is sitting in a chair at bedside resting comfortably and appears in no acute distress. Her affect is bright and cheerful. I reviewed her medications and lab results. Internal Medicine: Result - Labs CBC & Chem 7: 05/06/18 04:23 05/06/18 04:23 Labs: Short CBC 05/06/18 Range/Units 04:23 WBC 8.7 (4.3-11.1) K/mcL Hgb 12.6 (11.5-15.4) g/dL Hct 39.1 (35.3-44.9) % Plt Count 169 (140-400) K/mcL Neutrophils # 7.0 (1.6-8.9) K/mcL BMP 05/06/18 04:23 Sodium 135 L Potassium 4.0 Chloride 105 Carbon Dioxide 20 L BUN 27 H Creatinine 0.97 Glucose 83 Calcium 8.4 L Consult Discharge Plan - Plan Referrals: Gilbert Camilo, [employer] [Primary Care Provider] - 1 week
[2018-05-06] MEDS ORDERED: *HR* LORazepam 2 MG/ML VIAL IVP ONE (13:47)
[2018-05-06] MEDS: traZODone 50 MG TABLET PO SCH (22:07)
[2018-05-06] MEDS: ALPRAZolam 0.5 MG TABLET PO PRN (22:07)
[2018-05-07 06:42] LABS: Alanine Aminotransferase 11 Units/L (7-52); Alkaline Phosphatase 72 Units/L (34-104); Aspartate Amino Transferase 20 Units/L (13-39); BUN/Creatinine Ratio 19 (6-26); Bilirubin,Total 0.3 mg/dL (0.3-1.0); Blood Urea Nitrogen 12 mg/dL (8-23); Calcium 8.4 mg/dL (8.6-10.3); Carbon Dioxide 19 mEq/L (23-29); Chloride 108 mEq/L (98-107); Globulin 3.1 g/dL (2.4-3.5); Glucose 78 mg/dL (70-105); Osmolality,Calculated 281 (280-300); Potassium 3.6 mEq/L (3.5-5.1); Sodium 136 mEq/L (136-145); Total Protein 6.1 g/dL (6.4-8.9); eGFR For Non-African Americans > 60 (> 60)
[2018-05-07] MEDS: Lactobacillus 1 EACH CAP.SPRINK PO SCH ×2 (09:22→21:33)
[2018-05-07] MEDS: cefTRIAXone 2,000 MG in 0.9 % Sodium Chloride Mini Bag 100 ML IVPB SCH (09:23)
--- NOTE | 2018-05-07 10:05 | Internal Med Progress Note ---
Date of Encounter: 05/07/18 Time of Encounter: 09:48 - Assessment and plan (1) Acute renal insufficiency Current Visit: Yes Status: Acute Assessment and plan: May 06. Significantly improved with BUN 27 and creatinine 0.97. Continue IV fluids and recheck labs in a.m. May 07. Resolved. IV fluids will be discontinued. (2) UTI (urinary tract infection) Current Visit: Yes Status: Acute Assessment and plan: May 06. Continue empiric Rocephin. Urine culture report pending. May 07. Enterococcus faecalis on culture report noted. Change from Rocephin to Augmentin. Qualifiers: Urinary tract infection type: acute cystitis Hematuria presence: without hematuria Qualified Code(s): N30.00 - Acute cystitis without hematuria (3) Dementia Current Visit: Yes Status: Chronic Assessment and plan: May 06. MMSE May 2017 showed score 13/30. B12 and TSH unremarkable. Observe Qualifiers: Dementia type: unspecified type Dementia behavioral disturbance: without behavioral disturbance Qualified Code(s): F03.90 - Unspecified dementia without behavioral disturbance (4) Contusion of right back wall of thorax Current Visit: Yes Status: Acute Assessment and plan: May 06. Continue analgesics as needed. Qualifiers: Encounter type: initial encounter Qualified Code(s): S20.221A - Contusion o f right back wall of thorax, initial encounter (5) Weakness Current Visit: Yes Status: Acute Assessment and plan: May 06. Continue PT and OT intervention. - Subjective Interval history: May 06. No new problems have arisen. Family reports she is more confused today and did not sleep well last night. They report she is slightly constipated. May 07. No new problems have arisen. - Constitutional Vitals: Temp Pulse Resp BP Pulse Ox 98.5 F 100 18 129/63 99 05/07/18 05:40 05/07/18 05:40 05/07/18 05:40 05/07/18 05:40 05/07/18 05:40 Exam: She is resting comfortably in bed and appears in no acute distress. She denies pain or dyspnea. Her affect is overall cheerful. Heart is regular with rate approximately 90/m. Extremities show no edema. I reviewed her medications and lab results including urine culture. Internal Medicine: Result - Labs CBC & Chem 7: 05/06/18 04:23 05/07/18 05:42 Labs: [facility] 05/07/18 05:42 Sodium 136 Potassium 3.6 Chloride 108 H Carbon Dioxide 19 L BUN 12 Creatinine 0.64 Glucose 78 Calcium 8.4 L Liver Function 05/07/18 Range/Units 05:42 Total Bilirubin 0.3 (0.3-1.0) mg/dL AST 20 (13-39) Units/L ALT 11 (7-52) Units/L Alkaline Phosphatase 72 (34-104) Units/L Albumin 3.0 L (3.5-5.7) g/dL Consult Discharge Plan - Plan Referrals: Gilbert Camilo, PHYSICAL THERAPY TECHNICIAN [Primary Care Provider] - 1 week
[2018-05-07] MEDS ORDERED: MOM Conc 10 ML UD.LIQ PO SCH (10:15)
[2018-05-07] MEDS: ALPRAZolam 0.5 MG TABLET PO PRN (18:10)
[2018-05-07] MEDS: traZODone 50 MG TABLET PO SCH (21:33)
[2018-05-08] MEDS: Lactobacillus 1 EACH CAP.SPRINK PO SCH (08:57)
--- NOTE | 2018-05-08 09:14 | Discharge Summary ---
Date of Encounter: 05/08/18 Time of Encounter: 09:05 - Discharge Diagnosis (1) Acute renal insufficiency Priority: Primary Status: Resolved (2) UTI (urinary tract infection) Priority: Secondary Status: Acute Qualifiers: Urinary tract infection type: acute cystitis Hematuria presence: without hematuria Qualified Code(s): N30.00 - Acute cystitis without hematuria (3) Dementia Priority: Secondary Status: Chronic Qualifiers: Dementia type: unspecified type Dementia behavioral disturbance: without behavioral disturbance Qualified Code(s): F03.90 - Unspecified dementia without behavioral disturbance (4) Contusion of right back wall of thorax Priority: Secondary Status: Acute Qualifiers: Encounter type: initial encounter Qualified Code(s): S20.221A - Contusion of right back wall of thorax, initial encounter (5) Weakness Priority: Secondary Status: Acute Hospital course: Ms. Rose is a 88 year old female who came to emergency room after family reports she had a fall last evening. They state she has been getting progressively weaker over the past few days with decreased oral intake. She was evaluated in emergency room and found to have acute renal insufficiency likely due to dehydration. She had evidence of UTI. She was admitted to [facility] floor for ongoing care needs. Initial orders were written by the emergency room physician. I saw her on May 05 and performed the history and physical. She was given IV fluids. Azotemia resolved with BUN and creatinine decreasing to 12 and 0.64 respectively by May 07 with estimated GFR greater than 60. Her oral intake was adequate. She at evaluation and ongoing intervention by PT and OT. It was felt she might benefit from ongoing therapy in swing bed. Urine culture returned showing Enterococcus faecalis. She was initially given Rocephin but was changed to Augmentin and will continue this for 2 additional days in swing bed. - Time Spent with Patient Total time spent providing and/or coordinating discharge services: - Discharge Medications Home Medications: ALPRAZolam [Xanax 0.5 MG Tablet] 0.5 mg PO Q6HR PRN tablet 05/08/18 [Rx] Acetaminophen [Tylenol] 500 mg PO Q6HR PRN tablet 05/08/18 [Rx] Amoxicillin/Clavulanate [Augmentin] 875 mg PO BIDWM 2 Days tablet 05/08/18 [Rx] Docusate [Colace] 100 mg PO BID capsule 05/08/18 [Rx] Lactobacillus [Culturelle] 1 each PO BID 2 Days cap.sprink 05/08/18 [Rx] MOM Conc [MILK OF MAGNESIA conc] 10 ml PO Q48H ud.liq 05/08/18 [Rx] traZODone [TraZODone] 50 mg PO HS tablet 05/08/18 [Rx] Allergies/Adverse Reactions: Allergy/AdvReac Type Severity Reaction Status Date / Time No Known Allergies Allergy Verified 05/26/17 11:32 Date of admission: 05/05/18 15:56 Primary care physician: Gilbert Camilo CNP Consults: 05/05/18 12:37 Consult to Physical Therapy [CONS] Routine Comment: Evaluate, develop and implement POC Reason for Consult: By way need for wheelchair and other appliances to assist with ambulation. Does patient have active BEDREST order?: No Is patient medically & hemodynamically stable?: Yes Patient assessed for mobility or mobilized this visit?: Yes 05/05/18 15:27 Consult to Accountant Manager [CONS] Routine Reason for SW Consult: Family states there will be needs at home for discharge planning 05/05/18 15:46 Consult to Occupational Therapy [CONS] Routine Comment: Evaluate, develop and implement POC Reason for Consult: Fall, weakness Does patient have active BEDREST order?: No Is patient medically & hemodynamically stable?: Yes Patient assessed for mobility or mobilized this visit?: Yes Consult to Physical Therapy [CONS] Routine Comment: Evaluate, develop and implement POC Reason for Consult: Fall, weakness Does patient have active BEDREST order?: No Is patient medically & hemodynamically stable?: Yes Patient assessed for mobility or mobilized this visit?: Yes - Constitutional Vitals: Temp Pulse Resp BP Pulse Ox 97.5 F L 94 18 123/77 92 05/08/18 06:41 05/08/18 06:41 05/08/18 06:41 05/08/18 06:41 05/08/18 06:41 - Patient Status Disposition: Transfer Hospital Swing Bed Condition: Good - Discharge Instructions - Diet and Activity Activity: as per physical therapy Diet: regular diet
[2018-05-08] MEDS ORDERED: ALPRAZolam 0.5 MG TABLET PO SCH (10:30)
[2018-05-08 10:36] VITALS: BP 116/74
== END 2018-05-08 13:48 | disposition other institution (70) | DRG 690 ==
LOC: INPPIK 09:53 → EMEROOPIK 09:53 → INPPIK 12:15
PROVIDERS: ADMIT Internal Medicine; ATTEND Internal Medicine

== ENCOUNTER 2018-05-08 11:31 | Inpatient (IN) ==
[2018-05-08] MEDS ORDERED: ALPRAZolam 0.5 MG TABLET PO PRN (13:59)
[2018-05-08] MEDS: MOM Conc 10 ML UD.LIQ PO SCH (17:05)
[2018-05-08] MEDS: traZODone 50 MG TABLET PO SCH (22:14)
[2018-05-08] MEDS: Lactobacillus 1 EACH CAP.SPRINK PO SCH (22:14)
[2018-05-09 05:17] LABS: Basophils % 0.4 %; Eosinophils # 0.2 K/mcL (0.0-0.6); Eosinophils % 3.1 %; Hematocrit 41.2 % (35.3-44.9); Hemoglobin 13.3 g/dL (11.5-15.4); Immature Granulocytes % 0.9 % (0-4); Lymphocytes # 2.8 K/mcL (0.6-4.6); Lymphocytes % 35.9 %; Mean Corpuscular HGB Conc 32.3 g/dL (31.6-35.5); Mean Corpuscular Hemoglobin 28.5 pg (28.0-33.3); Mean Corpuscular Volume 88.2 fL (83.0-100.0); Monocytes # 0.6 K/mcL (0.0-1.3); Monocytes % 7.5 %; Platelet Count 188 K/mcL (140-400); Red Blood Count 4.67 M/mcL (3.82-4.97); Red Cell Distribution Width 13.5 % (11.5-14.5); Segmented Neutrophils % 52.2 %
[2018-05-09 06:00] LABS: Platelet Estimate Normal (Normal)
[2018-05-09 06:44] LABS: BUN/Creatinine Ratio 24 (6-26); Blood Urea Nitrogen 18 mg/dL (8-23); Calcium 8.8 mg/dL (8.6-10.3); Carbon Dioxide 23 mEq/L (23-29); Chloride 103 mEq/L (98-107); Glucose 81 mg/dL (70-105); Osmolality,Calculated 287 (280-300); Potassium 3.9 mEq/L (3.5-5.1); Sodium 138 mEq/L (136-145); eGFR For Non-African Americans > 60 (> 60)
[2018-05-09 06:48] LABS: INR 1.1; Prothrombin Time 11.9 Seconds (9.4-12.1)
[2018-05-09 06:50] LABS: Activated Partial Thrombo Time 32.2 Seconds (26.0-36.0)
[2018-05-09] MEDS: Lactobacillus 1 EACH CAP.SPRINK PO SCH ×2 (13:58→21:39)
[2018-05-09] MEDS: traZODone 50 MG TABLET PO SCH (21:39)
[2018-05-10] MEDS: Lactobacillus 1 EACH CAP.SPRINK PO SCH ×2 (09:13→20:48)
--- NOTE | 2018-05-10 11:01 | Internal Med Progress Note ---
Date of Encounter: 05/10/18 Time of Encounter: 10:55 - Assessment and plan (1) UTI (urinary tract infection) Current Visit: No Status: Acute Assessment and plan: May 10. She will complete her course of Augmentin and lactobacillus today. Qualifiers: Urinary tract infection type: acute cystitis Hematuria presence: without hematuria Qualified Code(s): N30.00 - Acute cystitis without hematuria (2) Weakness Current Visit: No Status: Acute Assessment and plan: May 10. Continue PT and OT intervention. (3) Dementia Current Visit: No Status: Chronic Assessment and plan: May 10. Continue Xanax as needed for behaviors. Qualifiers: Dementia type: unspecified type Dementia behavioral disturbance: without behavioral disturbance Qualified Code(s): F03.90 - Unspecified dementia without behavioral disturbance - Subjective Interval history: She was hospitalized in acute-care May 05-May 08 after experiencing a fall at home. She had acute renal insufficiency likely due to dehydration which resolved with IV fluids. She was treated for UTI. PT and OT evaluations and ongoing interventions were done. It was felt she would benefit from ongoing therapy in swing bed. No new problems have arisen. - Constitutional Vitals: Temp Pulse Resp BP Pulse Ox 97.8 F 83 16 103/63 96 05/09/18 18:38 05/09/18 18:38 05/09/18 18:38 05/09/18 18:38 05/09/18 21:40 Exam: She is resting comfortably in bed and appears in no acute distress. She opened her eyes toward the end of the exam but did not speak. Heart was regular with out murmurs gallops or ectopics. Lungs were clear anteriorly. Extremities show no edema. I reviewed her medications and lab results. Internal Medicine: Result - Labs CBC & Chem 7: 05/09/18 04:15 05/09/18 04:15 - ABG Interpretation ABG results: PT/INR, D-dimer PT 11.9 Seconds (9.4-12.1) 05/09/18 04:15 Consult Discharge Plan - Plan Referrals: NONE,PCP [Primary Care Provider] - 1 week
[2018-05-10] MEDS: MOM Conc 10 ML UD.LIQ PO SCH (16:10)
[2018-05-10] MEDS: traZODone 50 MG TABLET PO SCH (20:48)
[2018-05-11] MEDS: Lactobacillus 1 EACH CAP.SPRINK PO SCH ×2 (09:43→20:52)
[2018-05-11] MEDS: traZODone 50 MG TABLET PO SCH (20:51)
[2018-05-12 06:51] VITALS: BP 126/71
[2018-05-12] MEDS: Lactobacillus 1 EACH CAP.SPRINK PO SCH (08:57)
--- NOTE | 2018-05-12 15:54 | Discharge Summary ---
Date of Encounter: 05/12/18 Time of Encounter: 15:46 - Discharge Diagnosis (1) UTI (urinary tract infection) Priority: Primary Status: Resolved Qualifiers: Urinary tract infection type: acute cystitis Hematuria presence: without hematuria Qualified Code(s): N30.00 - Acute cystitis without hematuria (2) Weakness Priority: Secondary Status: Chronic (3) Dementia Priority: Secondary Status: Chronic Qualifiers: Dementia type: unspecified type Dementia behavioral disturbance: without behavioral disturbance Qualified Code(s): F03.90 - Unspecified dementia without behavioral disturbance Hospital course: Ms. Rose is a 88 year old female who was hospitalized in acute-care May 05-May 08 after experiencing a fall at home. She had acute renal insufficiency likely due to dehydration which resolved with IV fluids. She was treated for UTI. PT and OT evaluations and ongoing interventions were done. It was felt she would benefit from ongoing therapy in swing bed. She completed 2 additional days of antibiotic in swing bed. There was no evidence of ongoing UTI. She had ongoing physical therapy and occupational therapy intervention. She made slight progress. It was felt she would benefit from ongoing care needs in a SNF. Arrangements were complete for her to be discharged to [facility] the afternoon of May 12. She will follow with me there. She required intermittent Xanax for behaviors from dementia. - Time Spent with Patient Total time spent providing and/or coordinating discharge services: - Discharge Medications Prescriptions: ALPRAZolam [Xanax 0.5 MG Tablet] 0.5 mg PO Q6HR PRN 14 Days #56 tablet PRN Reason: Anxiety Home Medications: Acetaminophen [Tylenol] 500 mg PO Q6HR PRN tablet 05/08/18 [Rx] Docusate [Colace] 100 mg PO BID capsule 05/08/18 [Rx] MOM Conc [MILK OF MAGNESIA conc] 10 ml PO Q48H ud.liq 05/08/18 [Rx] traZODone [TraZODone] 50 mg PO HS tablet 05/08/18 [Rx] ALPRAZolam [Xanax 0.5 MG Tablet] 0.5 mg PO Q6HR PRN 14 Days #56 tablet 05/12/18 [Rx] Allergies/Adverse Reactions: Allergy/AdvReac Type Severity Reaction Status Date / Time No Known Allergies Allergy Verified 05/26/17 11:32 Date of admission: 05/08/18 13:53 Primary care physician: PCP NONE Consults: 05/08/18 13:51 Consult to Occupational Therapy [CONS] Routine Comment: Evaluate, Develop and Implement Plan of Care Reason for Consult: Evaluate, Develop and Implement Plan of Care Does patient have active BEDREST order?: No Is patient medically & hemodynamically stable?: Yes Patient assessed for mobility or mobilized this visit?: No Consult to Physical Therapy [CONS] Routine Comment: Evaluate, Develop and Implement Plan of Care Reason for Consult: Evaluate, Develop and Implement Plan of Care Does patient have active BEDREST order?: No Is patient medically & hemodynamically stable?: Yes Patient assessed for mobility or mobilized this visit?: No Consult to Pre School Teacher [CONS] Routine Reason for SW Consult: Discharge Planning - Constitutional Vitals: Temp Pulse Resp BP Pulse Ox 98.6 F 83 16 126/71 96 05/12/18 06:00 05/12/18 06:00 05/12/18 06:00 05/12/18 06:00 05/12/18 06:00 - Patient Status Disposition: Transfer SNF - Discharge Instructions - Diet and Activity Activity: as per physical therapy Diet: regular diet
--- NOTE | 2018-05-12 15:58 | Physician Discharge Referral ---
ExtendedCare Referral Info Transfer To: [facility] Provider in Charge: Sudhakar Provider in Charge after Transfer: PCP (Sudhakar) - Diagnosis (1) UTI (urinary tract infection) Priority: Primary Status: Resolved (2) Weakness Priority: Secondary Status: Chronic (3) Dementia Priority: Secondary Status: Chronic Prognosis: Fair Aware of Diagnosis: Family Aware of Prognosis: Family - Transfer Medications Prescriptions: ALPRAZolam [Xanax 0.5 MG Tablet] 0.5 mg PO Q6HR PRN 14 Days #56 tablet PRN Reason: Anxiety Home Medications: Acetaminophen [Tylenol] 500 mg PO Q6HR PRN tablet 05/08/18 [Rx] Docusate [Colace] 100 mg PO BID capsule 05/08/18 [Rx] MOM Conc [MILK OF MAGNESIA conc] 10 ml PO Q48H ud.liq 05/08/18 [Rx] traZODone [TraZODone] 50 mg PO HS tablet 05/08/18 [Rx] ALPRAZolam [Xanax 0.5 MG Tablet] 0.5 mg PO Q6HR PRN 14 Days #56 tablet 05/12/18 [Rx] Allergies/Adverse Reactions: Allergy/AdvReac Type Severity Reaction Status Date / Time No Known Allergies Allergy Verified 05/26/17 11:32 - Respiratory Orders Smoking Cessation: Smoking cessation has been advised. For more information, call the [place] Tobacco Quit Line at 5-404-SXLM-NOW. - Lab Orders Lab Orders: Other (include drug levels w/frequency) (CBC with differential, BMP in 1 week) - Advance Directives Code Status: Full Code - Rehabiliation Orders Rehab Potential: Fair Rehab Orders: Evaluation for Physical Therapy, Evaluation for Occupational Therapy - Diet Orders Regular CERTIFICATION: I certify that the transfer of the above named patient to an Extended Care Facility is necessary for the continuing treatment of the diagnosis listed. The above information is true and accurate reflection of patient's current condition. Confidential - Redisclosure prohibited without a patient's written consent.
[2018-05-12] MEDS: MOM Conc 10 ML UD.LIQ PO SCH (16:19)
== END 2018-05-12 17:23 | DRG 945 ==
LOC: INPPIK 13:53
PROVIDERS: ADMIT Internal Medicine; ATTEND Internal Medicine

== ENCOUNTER 2020-05-02 17:48 | Observation (INO) ==
[2020-05-02 18:46] LABS: Basophils % 0.2 %; Eosinophils # 0.1 K/mcL (0.0-0.6); Eosinophils % 0.5 %; Hematocrit 33.7 % (35.3-44.9); Hemoglobin 10.5 g/dL (11.5-15.4); Immature Granulocytes % 0.5 % (0-4); Lymphocytes # 2.5 K/mcL (0.6-4.6); Lymphocytes % 22.7 %; Mean Corpuscular HGB Conc 31.2 g/dL (31.6-35.5); Mean Corpuscular Hemoglobin 24.4 pg (28.0-33.3); Mean Corpuscular Volume 78.4 fL (83.0-100.0); Mean Platelet Volume 9.1 fL (9.4-12.4); Monocytes # 0.9 K/mcL (0.0-1.3); Monocytes % 8.2 %; Neutrophils # 7.5 K/mcL (1.6-8.9); Platelet Count 292 K/mcL (140-400); Red Cell Distribution Width 18.1 % (11.5-14.5); Segmented Neutrophils % 67.9 %; White Blood Count 11.1 K/mcL (4.3-11.1)
[2020-05-02 18:54] LABS: INR 1.4; Prothrombin Time 16.5 Seconds (9.4-12.1)
[2020-05-02 18:57] LABS: Activated Partial Thrombo Time 33.8 Seconds (26.0-36.0)
[2020-05-02 19:02] LABS: BUN/Creatinine Ratio 32 (6-26); Blood Urea Nitrogen 22 mg/dL (8-23); Carbon Dioxide 26 mEq/L (23-29); Chloride 98 mEq/L (98-107); Glucose 120 mg/dL (70-105); Osmolality,Calculated 281 (280-300); Potassium 4.5 mEq/L (3.5-5.1); Sodium 133 mEq/L (136-145); eGFR For African Americans > 60 (> 60); eGFR For Non-African Americans > 60 (> 60)
[2020-05-02] MEDS ORDERED: *HR* FentaNYL (PF) 100 MCG/2 ML VIAL IVP ONE (19:05)
[2020-05-02] MEDS ORDERED: Acetaminophen 325 MG TABLET PO PRN (22:59)
[2020-05-02] MEDS ORDERED: Naloxone 0.4 MG/ML INJ IVP PRN (22:59)
[2020-05-02] MEDS ORDERED: Mirtazapine 15 MG TABLET PO SCH (22:59)
[2020-05-02] MEDS ORDERED: *HR* HYDROcodone/Acet 5/325 mg TABLET PO PRN (22:59)
[2020-05-02] MEDS ORDERED: *HR* OxyCODONE Immed Rel 5 MG TABLET PO PRN (22:59)
[2020-05-02] MEDS ORDERED: 0.9 % Sodium Chloride 1,000 ML IVC SCH (22:59)
[2020-05-03 06:46] VITALS: BP 120/70
== END 2020-05-03 11:36 | disposition short-term general hospital (02) ==
LOC: INPPIK 17:48 → EMEROOPIK 17:48 → INPPIK 23:15
PROVIDERS: ADMIT Family Medicine; ATTEND Family Medicine